=== PATIENT | male | born 1985 | race American Indian/Alaskan Native ===

== ENCOUNTER 2025-06-25 09:56 | Emergency (ER) | payer MEDICAID, SELFPAY ==
--- NOTE | 2025-06-25 10:02 | PC.NURSE ---
Patient Left, refused to keep bags with Security, had a Baseball Bat, said was going to drop bat, and bags off somewhere. Left at 1004.
--- NOTE | 2025-06-25 10:39 | PD.EDADDENDU ---
Emergency Room Addendum Addendum Narrative: When I looked for the patient to start my evaluation, I was told the patient eloped. Ashok Reyna MD
== END 2025-06-25 10:04 | disposition left against medical advice (07) ==
LOC: SERX 11:23
PROVIDERS: Emergency Provider Emergency Medicine
DX: Z53.21 Procedure and treatment not carried out due to patient leaving prior to being seen by health care provider (principal)